=== PATIENT | female | born 1985 | race Caucasian/White ===

== ENCOUNTER 2020-10-27 02:22 | Emergency (ER) | payer BC ==
[~2020-10-27] VITALS: Ht 152.4 cm; Wt 48.6 kg
[2020-10-27 02:25] VITALS: Ht 152.4 cm; Wt 48.6 kg
[2020-10-27] MEDS ORDERED: AMOXICILLIN500 M1 PO (03:40)
[2020-10-27 03:44] VITALS: BP 131/88
== END 2020-10-27 03:44 | disposition home or self-care (01) ==
LOC: D.ER 02:22
DX: S01.81XA Laceration without foreign body of other part of head, initial encounter (principal); S09.90XA Unspecified injury of head, initial encounter; Y04.2XXA Assault by strike against or bumped into by another person, initial encounter; Y93.9 Activity, unspecified; Y92.9 Unspecified place or not applicable